=== PATIENT | male | born 2000 | race Hispanic/Latino ===

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

== ENCOUNTER 2019-01-18 14:59 | Emergency (ER) | payer OTHER ==
[2019-01-18] MEDS ORDERED: AZITHROMYCIN 250 MG TABLET PO ONE (15:36)
[2019-01-18] MEDS ORDERED: CEFTRIAXONE SODIUM 500 MG VIAL ONE (15:36)
[2019-01-18] MEDS ORDERED: LIDOCAINE HCL-MPF 1% 2ML VIAL ONE (15:36)
[2019-01-18 16:27] LABS: BASOPHILS % (AUTO) 0.8 % (0.0-5.0); EOSINOPHILS % (AUTO) 1.9 % (0.0-8.0); HEMATOCRIT 43.3 % (42-54); LYMPHOCYTES % (AUTO) 23.5 % (21.0-51.0); MEAN CORPUSCULAR HEMOGLOBIN 30.1 pg (27.0-33.0); MEAN CORPUSCULAR HGB CONC 33.2 g/dL (32.0-36.0); MEAN CORPUSCULAR VOLUME 90.6 fL (80-100); MONOCYTES % (AUTO) 8.7 % (3.0-13.0); NEUTROPHILS % (AUTO) 65.1 % (40.0-77.0); PLATELET COUNT (AUTO) 141 K/uL (130-400); RED BLOOD CELL COUNT(AUTO) 4.78 MIL/uL (4.50-6.20); RED CELL DISTRIBUTION WIDTH 14.4 % (11.0-15.5); WHITE BLOOD COUNT (AUTO) 8.8 K/uL (4.8-10.8)
[2019-01-18 16:28] LABS: APPEARANCE,URINE Clear (CLEAR); BILIRUBIN,URINE Negative (NEGATIVE); COLOR,URINE Yellow (YELLOW); GLUCOSE, URINE (UA) Negative (NEGATIVE); KETONES,URINE Negative (NEGATIVE); LEUKOCYTE ESTERASE ,URINE Moderate (NEGATIVE); NITRATE,URINE Negative (NEGATIVE); OCCULT BLOOD,URINE Negative (NEGATIVE); PH,URINE 5.5 (5.0-8.0); PROTEIN,URINE Negative (NEGATIVE)
[2019-01-18 16:36] LABS: CREATININE 1.1 mg/dL (0.5-1.5)
[2019-01-18 16:41] LABS: ALBUMIN 3.7 g/dL (3.5-5.0); BILIRUBIN,TOTAL 0.4 mg/dL (0.2-1.0); TOTAL PROTEIN, SERUM 8.1 g/dL (6.0-8.3)
[2019-01-18 16:44] LABS: BACTERIA,URINE Rare /HPF (None Seen); RBC,URINE None Seen /HPF (0-1)
== END 2019-01-18 17:53 | disposition home or self-care (01) ==
LOC: EDH 14:59
DX: N39.0 Urinary tract infection, site not specified (principal); R19.7 Diarrhea, unspecified; R11.10 Vomiting, unspecified; F90.9 Attention-deficit hyperactivity disorder, unspecified type; Z72.0 Tobacco use
CPT/HCPCS: 36415; 80053; 81001; 83690; 85025; J0696; J3490

== ENCOUNTER 2022-03-12 17:04 | Emergency (ER) | payer BC, OTHER ==
[~2022-03-12] VITALS: Ht 172.7 cm; Wt 117.9 kg
[~2022-03-12 17:04] MED LIST: CYCL5TAB PO; GUAI10LI12 PO; IBUP-2070 PO; PSEU120T62 PO
[2022-03-12 17:06] VITALS: BP 144/89
[2022-03-12] MEDS ORDERED: TETRACAINE HCL 0.5% 4 ML OPHTH SOLN OP SCH (17:30)
[2022-03-12] MEDS ORDERED: ERYT1OIN7 OP (17:32)
== END 2022-03-12 17:44 | disposition home or self-care (01) ==
LOC: EDH 17:04
DX: H10.9 Unspecified conjunctivitis (principal); F17.200 Nicotine dependence, unspecified, uncomplicated